=== PATIENT | female | born 1930 | race Caucasian/White ===

== ENCOUNTER 2017-07-06 23:53 | Inpatient (IN) | payer MEDICARE, MEDICAID ==
[~2017-07-06] VITALS: Ht 170.2 cm; Wt 100.1 kg
[2017-07-07] MEDS ORDERED: ASPI-496 PO (00:43)
[2017-07-07] MEDS ORDERED: GLIP5TAB10 PO (00:43)
[2017-07-07] MEDS ORDERED: TORS20TA2 PO (00:43)
[2017-07-07] MEDS ORDERED: [UNRECOGNIZED DRUG - OTHER] PO (00:43)
[2017-07-07] MEDS ORDERED: D3 (00:43)
[2017-07-07] MEDS ORDERED: GABA300C10 PO (00:43)
[2017-07-07] MEDS ORDERED: VITA1TAB19 PO (00:43)
[2017-07-07] MEDS ORDERED: SPIR25TA3 PO (00:43)
[2017-07-07] MEDS ORDERED: POTA20TA6 PO (00:43)
[2017-07-07] MEDS ORDERED: CARTIA XT (00:43)
[2017-07-07] MEDS ORDERED: SODIUM CHLORIDE FLUSH 10ML SYR IVF ONE (01:00)
[2017-07-07] MEDS ORDERED: SODIUM CHLORIDE 0.9% 1,000ML IVBOLUS ONE (01:00)
[2017-07-07 01:08] LABS: BASOPHILS # (AUTO) 0.02 x10^3/uL (0-0.1); BASOPHILS % (AUTO) 0 % (0-1); EOSINOPHILS % (AUTO) 1 % (1-7); LYMPHOCYTES # (AUTO) 0.71 x10^3/uL (1-3.4); LYMPHOCYTES % (AUTO) 6 % (22-44); MD NO; MEAN CORPUSCULAR HEMOGLOBIN 33.5 pg (27.0-34.8); MEAN CORPUSCULAR HGB CONC 34.1 g/dL (32.4-35.8); MEAN CORPUSCULAR VOLUME 98.2 fL (80-100); MEAN PLATELET VOLUME 7.8 fL (7.4-10.4); MONOCYTES # (AUTO) 0.57 x10^3/uL (0.2-0.8); MONOCYTES % (AUTO) 5 % (2-9); NEUTROPHILS # (AUTO) 10.46 x10^3/uL (1.8-6.8); NEUTROPHILS % (AUTO) 88 % (42-75); PLATELET COUNT 267 x10^3/uL (130-400); RED CELL DISTRIBUTION WIDTH 15.2 % (9.6-15.2)
[2017-07-07 01:17] LABS: ALANINE AMINOTRANSFERASE 31 U/L (12-78); ANION GAP 11 mmol/L (5-15); CALCIUM 8.3 mg/dL (8.5-10.1); CHLORIDE 89 mmol/L (98-107); CREATININE 1.33 mg/dL (0.55-1.02)
[2017-07-07 01:20] LABS: ALKALINE PHOSPHATASE 166 U/L (45-117); BILIRUBIN,TOTAL 0.7 mg/dL (0.2-1.0); TOTAL PROTEIN 7.1 g/dL (6.4-8.2)
[2017-07-07 01:40] LABS: CULTURE INDICATED? YES; MICROSCOPIC INDICATED
[2017-07-07] MEDS ORDERED: CEFTRIAXONE PMX 1GM/50ML 50 ML IV ONE (02:00)
[2017-07-07] MEDS ORDERED: SODIUM CHLORIDE 0.9%, 500ML IVBOLUS ONE (02:00)
[2017-07-07] MEDS ORDERED: SODIUM CHLORIDE 0.9% 1,000 ML IV SCH (03:25)
[2017-07-07] MEDS ORDERED: ENOXAPARIN 40 MG/0.4 ML SQ SCH (03:30)
[2017-07-07] MEDS ORDERED: TEMAZEPAM 15 MG CAPSULE PO PRN (03:30)
[2017-07-07] MEDS ORDERED: DOCUSATE 100 MG CAPSULE PO PRN (03:30)
[2017-07-07] MEDS ORDERED: CEFTRIAXONE PMX 1GM/50ML 50 ML IV SCH (03:30)
[2017-07-07 04:03] VITALS: BP 117/72
[2017-07-07 07:00] VITALS: BP 125/85
[2017-07-07] MEDS: MAGNESIUM HYDROXIDE 8%, 30ML UDC PO SCH (07:53)
[2017-07-07] MEDS: INSULIN ASPART 100 UNITS/ML, PEN SQ-INSULIN SCH ×4 (07:54→20:18)
[2017-07-07 08:28] LABS: BASOPHILS # (AUTO) 0.02 x10^3/uL (0-0.1); BASOPHILS % (AUTO) 0 % (0-1); EOSINOPHILS # (AUTO) 0.09 x10^3/uL (0-0.4); EOSINOPHILS % (AUTO) 1 % (1-7); LYMPHOCYTES # (AUTO) 1.14 x10^3/uL (1-3.4); LYMPHOCYTES % (AUTO) 12 % (22-44); MD NO; MEAN CORPUSCULAR HEMOGLOBIN 33.1 pg (27.0-34.8); MEAN CORPUSCULAR HGB CONC 33.8 g/dL (32.4-35.8); MEAN CORPUSCULAR VOLUME 97.7 fL (80-100); MEAN PLATELET VOLUME 7.7 fL (7.4-10.4); MONOCYTES # (AUTO) 0.37 x10^3/uL (0.2-0.8); MONOCYTES % (AUTO) 4 % (2-9); NEUTROPHILS % (AUTO) 83 % (42-75); PLATELET COUNT 233 x10^3/uL (130-400); RED CELL DISTRIBUTION WIDTH 15.3 % (9.6-15.2)
[2017-07-07 08:36] LABS: ALBUMIN 2.9 g/dL (3.4-5.0); ANION GAP 13 mmol/L (5-15); CALCIUM 7.9 mg/dL (8.5-10.1); CHLORIDE 91 mmol/L (98-107); CREATININE 1.23 mg/dL (0.55-1.02)
[2017-07-07] MEDS: ASPIRIN 81 MG TABLET EC PO SCH (10:06)
[2017-07-07] MEDS: GABAPENTIN 300 MG CAPSULE PO SCH ×3 (10:06→20:19)
[2017-07-07 13:33] VITALS: BP 118/76
[2017-07-07 19:50] VITALS: BP 115/75
[2017-07-08 02:25] VITALS: BP 127/69
[2017-07-08] MEDS: CEFTRIAXONE 1,000 MG in DEXTROSE 5% 50 ML IV SCH (02:35)
[2017-07-08] MEDS ORDERED: ENOXAPARIN 30 MG/0.3 ML SQ SCH (05:00)
[2017-07-08 06:00] LABS: ANION GAP 8 mmol/L (5-15); CALCIUM 7.9 mg/dL (8.5-10.1); CHLORIDE 96 mmol/L (98-107)
[2017-07-08 06:02] LABS: CREATININE 0.98 mg/dL (0.55-1.02)
[2017-07-08 06:19] LABS: BASOPHILS # (AUTO) 0.01 x10^3/uL (0-0.1); BASOPHILS % (AUTO) 0 % (0-1); EOSINOPHILS # (AUTO) 0.29 x10^3/uL (0-0.4); EOSINOPHILS % (AUTO) 5 % (1-7); LYMPHOCYTES # (AUTO) 1.89 x10^3/uL (1-3.4); LYMPHOCYTES % (AUTO) 30 % (22-44); MD NO; MEAN CORPUSCULAR HEMOGLOBIN 33.1 pg (27.0-34.8); MEAN CORPUSCULAR HGB CONC 33.7 g/dL (32.4-35.8); MEAN CORPUSCULAR VOLUME 98.5 fL (80-100); MEAN PLATELET VOLUME 7.6 fL (7.4-10.4); MONOCYTES # (AUTO) 0.69 x10^3/uL (0.2-0.8); MONOCYTES % (AUTO) 11 % (2-9); NEUTROPHILS # (AUTO) 3.54 x10^3/uL (1.8-6.8); NEUTROPHILS % (AUTO) 55 % (42-75); PLATELET COUNT 219 x10^3/uL (130-400); RED BLOOD COUNT 3.86 x10^6/uL (3.82-5.3); RED CELL DISTRIBUTION WIDTH 15.1 % (9.6-15.2)
[2017-07-08] MEDS: MAGNESIUM HYDROXIDE 8%, 30ML UDC PO SCH ×3 (07:34→13:13)
[2017-07-08] MEDS: INSULIN ASPART 100 UNITS/ML, PEN SQ-INSULIN SCH ×4 (07:35→20:51)
[2017-07-08] MEDS: ASPIRIN 81 MG TABLET EC PO SCH ×2 (07:35→07:36)
[2017-07-08] MEDS: GABAPENTIN 300 MG CAPSULE PO SCH ×4 (07:35→20:50)
[2017-07-08 08:25] VITALS: BP 134/86
[2017-07-08] MEDS: ACETAMINOPHEN 325 MG TABLET PO PRN (12:06)
[2017-07-08 12:55] VITALS: BP 142/68
[2017-07-08] MEDS ORDERED: BISACODYL 10 MG SUPP PR PRN (19:00)
[2017-07-08 19:43] VITALS: BP 126/85
[2017-07-08] MEDS: DIVALPROEX 125 MG CAP.SPRINK PO SCH (21:46)
[2017-07-09 00:42] VITALS: BP 116/81
[2017-07-09] MEDS: CEFTRIAXONE 1,000 MG in DEXTROSE 5% 50 ML IV SCH (02:03)
[2017-07-09] MEDS: ENOXAPARIN 40 MG/0.4 ML SQ SCH (06:20)
[2017-07-09] MEDS: INSULIN ASPART 100 UNITS/ML, PEN SQ-INSULIN SCH ×4 (07:49→21:27)
[2017-07-09 08:56] VITALS: BP 126/76
[2017-07-09] MEDS: DIVALPROEX 125 MG CAP.SPRINK PO SCH ×2 (09:42→21:27)
[2017-07-09] MEDS: MAGNESIUM HYDROXIDE 8%, 30ML UDC PO SCH (09:42)
[2017-07-09] MEDS: GABAPENTIN 300 MG CAPSULE PO SCH ×3 (09:42→21:27)
[2017-07-09] MEDS: ASPIRIN 81 MG TABLET EC PO SCH (09:42)
[2017-07-09 14:00] VITALS: BP 122/74
[2017-07-09] MEDS: AMPICILLIN/SULBACTAM 3 GM in SODIUM CHLORIDE 0.9% 100 ML IV SCH ×2 (14:16→20:08)
[2017-07-09 17:56] VITALS: BP 128/84
[2017-07-09 20:38] VITALS: BP 130/80
[2017-07-10] MEDS: AMPICILLIN/SULBACTAM 3 GM in SODIUM CHLORIDE 0.9% 100 ML IV SCH ×4 (02:23→20:24)
[2017-07-10 02:29] VITALS: BP 131/86
[2017-07-10 05:32] LABS: ALBUMIN 2.7 g/dL (3.4-5.0); ANION GAP 5 mmol/L (5-15); CALCIUM 8.2 mg/dL (8.5-10.1); CHLORIDE 97 mmol/L (98-107); CREATININE 0.82 mg/dL (0.55-1.02)
[2017-07-10] MEDS: ENOXAPARIN 40 MG/0.4 ML SQ SCH (05:58)
[2017-07-10 06:45] VITALS: BP 132/77
[2017-07-10] MEDS: ASPIRIN 81 MG TABLET EC PO SCH (07:53)
[2017-07-10] MEDS: INSULIN ASPART 100 UNITS/ML, PEN SQ-INSULIN SCH ×4 (07:53→21:06)
[2017-07-10] MEDS: MAGNESIUM HYDROXIDE 8%, 30ML UDC PO SCH (07:53)
[2017-07-10] MEDS: DIVALPROEX 125 MG CAP.SPRINK PO SCH ×2 (07:53→21:06)
[2017-07-10] MEDS: GABAPENTIN 300 MG CAPSULE PO SCH ×3 (07:53→21:06)
[2017-07-10] MEDS ORDERED: AMOX1TAB64 PO (09:39)
[2017-07-10 14:11] VITALS: BP 139/80
[2017-07-10 20:23] VITALS: BP 137/85
[2017-07-11 01:18] VITALS: BP 129/86
[2017-07-11] MEDS: AMPICILLIN/SULBACTAM 3 GM in SODIUM CHLORIDE 0.9% 100 ML IV SCH ×4 (02:24→23:39)
[2017-07-11] MEDS: ACETAMINOPHEN 325 MG TABLET PO PRN (06:28)
[2017-07-11] MEDS: ENOXAPARIN 40 MG/0.4 ML SQ SCH (06:28)
[2017-07-11 08:00] VITALS: BP 132/84
[2017-07-11] MEDS: INSULIN ASPART 100 UNITS/ML, PEN SQ-INSULIN SCH ×4 (08:21→23:49)
[2017-07-11] MEDS: MAGNESIUM HYDROXIDE 8%, 30ML UDC PO SCH (08:22)
[2017-07-11] MEDS: GABAPENTIN 300 MG CAPSULE PO SCH ×3 (08:22→23:39)
[2017-07-11] MEDS: DIVALPROEX 125 MG CAP.SPRINK PO SCH ×2 (08:22→23:40)
[2017-07-11] MEDS: ASPIRIN 81 MG TABLET EC PO SCH (08:22)
[2017-07-11 13:24] VITALS: BP 102/71
[2017-07-11 20:16] VITALS: BP 123/79
[2017-07-12 03:08] VITALS: BP 126/88
[2017-07-12] MEDS: AMPICILLIN/SULBACTAM 3 GM in SODIUM CHLORIDE 0.9% 100 ML IV SCH ×3 (04:54→16:47)
[2017-07-12] MEDS: ENOXAPARIN 40 MG/0.4 ML SQ SCH (05:55)
[2017-07-12 08:18] VITALS: BP 125/83
[2017-07-12] MEDS: MAGNESIUM HYDROXIDE 8%, 30ML UDC PO SCH (08:36)
[2017-07-12] MEDS: INSULIN ASPART 100 UNITS/ML, PEN SQ-INSULIN SCH ×3 (08:45→16:48)
[2017-07-12] MEDS: DIVALPROEX 125 MG CAP.SPRINK PO SCH (08:47)
[2017-07-12] MEDS: GABAPENTIN 300 MG CAPSULE PO SCH ×2 (08:47→16:47)
[2017-07-12] MEDS: ASPIRIN 81 MG TABLET EC PO SCH (08:47)
[2017-07-12 14:47] VITALS: BP 131/85
== END 2017-07-12 17:06 | DRG 871 ==
LOC: ED 23:59 → EDIP 07-07 02:29 → SUATTDRO 07-07 03:24 → 4NOR 07-07 03:45
PROVIDERS: ADMIT Internal Medicine; ATTEND Internal Medicine
PROC: 0T9B70Z Drainage of Bladder with Drainage Device, Via Natural or Artificial Opening (ICD-10-PCS; principal; 2017-07-07)
DX: A41.51 Sepsis due to Escherichia coli [E. coli] (principal); N17.0 Acute kidney failure with tubular necrosis; E44.0 Moderate protein-calorie malnutrition; N39.0 Urinary tract infection, site not specified; E87.1 Hypo-osmolality and hyponatremia; I50.22 Chronic systolic (congestive) heart failure; E11.40 Type 2 diabetes mellitus with diabetic neuropathy, unspecified; B95.2 Enterococcus as the cause of diseases classified elsewhere; B96.20 Unspecified Escherichia coli [E. coli] as the cause of diseases classified elsewhere; F02.80 Dementia in other diseases classified elsewhere, unspecified severity, without behavioral disturbance, psychotic disturbance, mood disturbance, and anxiety; G30.9 Alzheimer's disease, unspecified; I11.0 Hypertensive heart disease with heart failure
CPT/HCPCS: 36415; 74021; 80048; 80053; 81001; 82040; 82962; 83690; 83735; 85025; 87077; 87086; 87186; 93005; 96361; 96365; J0295; J0696; J1650; J1815; J7030